=== PATIENT | male | born 1945 | race Caucasian/White ===

== ENCOUNTER 2017-09-13 11:22 | Emergency (ER) | payer MEDICARE ==
[2017-09-13] MEDS ORDERED: NS 0.9% 1000 ML* 1,000 ML IV ONE (11:56)
[2017-09-13] MEDS ORDERED: Aspirin 81 mg CHEW TAB* 81 MG TAB.CHEW PO ONE (11:56)
[2017-09-13] MEDS ORDERED: Nitroglycerin TAB 0.4 MG* 0.4 MG TAB SL ONE ×3 (11:56→13:45)
[2017-09-13 12:03] LABS: ABS Basophils 0.1 10^3/ul (0-0.2); ABS Eosinophils 0.3 10^3/ul (0-0.6); ABS Lymphocytes 1.4 10^3/ul (1.0-4.8); ABS Monocytes 0.7 10^3/ul (0-0.8); ABS Neutrophils 4.2 10^3/ul (1.5-7.7); ABS Nucleated RBC 0 10^3/ul; Eosinophil % 4.7 % (0-6); Hematocrit 43 % (42-52); Hemoglobin 15.2 g/dl (14.0-18.0); Lymphocyte % 21.1 % (25-47); Mean Corpuscular HGB Conc 36 g/dl (31-36); Mean Corpuscular Hemoglobin 34 pg (27-31); Mean Corpuscular Volume 94 fL (80-94); Nucleated Red Blood Cells % 0.2; Platelet Count 217 10^3/ul (150-450); Red Blood Count 4.51 10^6/ul (4.00-5.40); Red Cell Distribution Width 13 % (10.5-15); White Blood Count 6.7 10^3/ul (3.5-10.8)
--- NOTE | 2017-09-13 12:19 | RAD ---
INDICATION: Chest pain COMPARISON: July 23, 2017 TECHNIQUE: An AP portable view obtained at 1212 hours is submitted. FINDINGS: Bones/Soft Tissues: There are no acute bony findings. Cardiomediastinal: The cardiomediastinal silhouette is normal. Lungs: There are no infiltrates. Pleura: There are no pleural effusions. Other: None IMPRESSION: NO ACTIVE DISEASE.
[2017-09-13] MEDS ORDERED: Morphine VIAL* 4 MG/ML VIAL (1 ml vial) IV ONE (12:20)
[2017-09-13] MEDS ORDERED: Ondansetron ODT TAB* 4 MG PO ONE (12:20)
[2017-09-13] MEDS ORDERED: Ondansetron INJ* 2 MG/ML VIAL IV PRN (13:39)
[2017-09-13] MEDS ORDERED: Morphine INJ* 2 MG/ML 1 ML CARPUJECT IV PRN (13:39)
[2017-09-13] MEDS ORDERED: Acetaminophen TAB* 325 MG PO PRN (13:39)
[2017-09-13] MEDS ORDERED: Al Hydrox/Mg Hydrox/Simet LIQ* 30 ML UDC PO PRN (13:39)
[2017-09-13] MEDS ORDERED: Magnesium Hydroxide LIQ* 30 ML UDC PO PRN (13:39)
[2017-09-13] MEDS ORDERED: Heparin VIAL(*) 5000 UNITS/ML VIAL (FIVE THOUSAND) SUBCUT SCH (14:00)
[2017-09-13 15:11] LABS: Urine Appearance Clear; Urine Blood Negative (Negative); Urine Color Straw; Urine Ketones Negative (Negative); Urine Protein Negative (Negative); Urine Specific Gravity 1.008 (1.010-1.030); Urine Urobilinogen Negative (Negative)
--- NOTE | 2017-09-13 15:21 | ED ---
Israel Redding Julia, scribed for Ulises Sahni MD on 09/13/17 at 1144 . HPI Chest Pain - HPI Summary HPI Summary: This patient is a 72 year old M BIBA to [facility] accompanied by his with a chief complaint of sudden mid sternal chest pain at 09:30 this morning radiating to his neck. Pain was 10/10 in severity at the worst and is 8/10 currently. Reports SOB, dizziness, and a mild headache. Patient denies diaphoresis nausea and diarrhea. History of angina for the past 3.5 years; seen by Dr. Rene. Chest pain has been more frequent in the past 3-4 months, with significant worsening the past few days. Chest pain typically resolves with relaxation. 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 Didnt nitroglycerin this morning, due to reaction of significant headaches. Nuclear Stress test performed 08/04/17. Dr. Rene has been called prior to arrival. Denies history of blood clots. - History of Current Complaint Chief Complaint: EDChestPainROMI Time Seen by Provider: 09/13/17 11:31 Hx Obtained From: Patient Onset/Duration: Started Hours Ago Time of Onset: 09:30 Timing: Constant Initial Severity: Severe Current Severity: Moderate Pain Intensity: 8 Pain Scale Used: 0-10 Numeric Chest Pain Location: Mid Sternal Chest Pain Radiates: Yes Chest Pain Radiates To:: Neck Alleviating Factor(s): Nothing - today, Rest - usually Associated Signs and Symptoms: Positive: Chest Pain, Dizziness, Shortness of Breath Related History: Similar Episode/Dx as: - angina - Allergy/Home Medications Allergies/Adverse Reactions: Allergies Allergy/AdvReac Type Severity Reaction Status Date / Time No Known Allergies Allergy Verified 09/13/17 11:31 Home Medications: Home Medications Atorvastatin* [Lipitor*] 80 mg PO QPM 09/13/17 [History Confirmed 09/13/17] Cyanocobalamin TAB* [Vitamin B12 TAB*] 5,000 units PO DAILY 09/13/17 [History Confirmed 09/13/17] PMH/Surg Hx/FS Hx/Imm Hx Endocrine/Hematology History: Denies: Hx Diabetes Cardiovascular History: Reports: Hx Angina, Hx Coronary Artery Disease, Hx Hypercholesterolemia, Hx Hypertension, Other Cardiovascular Problems/Disorders - HEART BLOCKAGE Denies: Hx Myocardial Infarction, Hx Valvular Heart Disease Respiratory History: Denies: Hx Asthma, Hx Chronic Obstructive Pulmonary Disease (COPD) GI History: Reports: Other GI Disorders - celiac,mineirs History: Reports: Other Problems/Disorders - PROSTATE CA WITH PROSTATECTOMY Musculoskeletal History: Reports: Other Musculoskeletal History - OCCAISIONAL MUSCULAR BACK PAIN - Cancer History Cancer Type, Location and Year: PROSTATE - Surgical History Surgery Procedure, Year, and Place: PROSTATECTOMY. BACK SURGERY,hernia, diverticulitis Infectious Disease History: No Infectious Disease History: Denies: Traveled Outside the [place] in Last 30 Days - Family History Known Family History: Positive: Hypertension - Social History Alcohol Use: Weekly Alcohol Amount: wine, no more than 2 glasses/day Substance Use Type: Reports: None Smoking Status (MU): Never Smoked Tobacco Review of Systems Negative: Skin Diaphoresis Positive: Chest Pain Positive: Shortness Of Breath Negative: Diarrhea, Nausea Neurological: Other - dizziness Positive: Headache All Other Systems Reviewed And Are Negative: Yes Physical Exam - Summary Physical Exam Summary: General: well-appearing, no pain distress Skin: warm, color reflects adequate perfusion, dry Head: normal Eyes: EOMI, ADEEL ENT: normal Neck: supple, nontender Respiratory: CTA, breath sounds present Cardiovascular: RRR Abdomen: soft, nontender Bowel: present Musculoskeletal: normal, strength/ROM intact Neurological: sensory/motor intact, A&O x3 Psychological: affect/mood appropriate Triage Information Reviewed: Yes Vital Signs On Initial Exam: Initial Vitals Temp Pulse Resp BP Pulse Ox 98.7 F 72 17 139/79 97 09/13/17 11:27 09/13/17 11:27 09/13/17 11:27 09/13/17 11:27 09/13/17 11:27 Vital Signs Reviewed: Yes Diagnostics - Vital Signs Vital Signs Temp Pulse Resp BP Pulse Ox 09/13/17 11:30 72 20 98 09/13/17 11:29 70 13 139/79 95 09/13/17 11:27 98.7 F 72 17 139/79 97 - Laboratory Lab Results: Lab Results 09/13/17 09/13/17 09/13/17 Range/Units 11:53 11:53 11:53 WBC 6.7 (3.5-10.8) 10^3/ul RBC 4.51 (4.00-5.40) 10^6/ul Hgb 15.2 (14.0-18.0) g/dl Hct 43 (42-52) % MCV 94 (80-94) fL MCH 34 H (27-31) pg MCHC 36 (31-36) g/dl RDW 13 (10.5-15) % Plt Count 217 (150-450) 10^3/ul MPV 8.0 (7.4-10.4) um3 Neut % (Auto) 62.2 (38-83) % Lymph % (Auto) 21.1 L (25-47) % [place] % (Auto) 10.9 H (0-7) % Eos % (Auto) 4.7 (0-6) % Baso % (Auto) 1.1 (0-2) % Absolute Neuts (auto) 4.2 (1.5-7.7) 10^3/ul Absolute Lymphs (auto) 1.4 (1.0-4.8) 10^3/ul Absolute Monos (auto) 0.7 (0-0.8) 10^3/ul Absolute Eos (auto) 0.3 (0-0.6) 10^3/ul Absolute Basos (auto) 0.1 (0-0.2) 10^3/ul Absolute Nucleated RBC 0 10^3/ul Nucleated RBC % 0.2 INR (Anticoag Therapy) 0.90 (0.77-1.02) APTT 25.8 L (26.0-36.3) seconds D-Dimer, Quantitative < 200 (Less Than 230) ng/mL Sodium 141 (135-145) mmol/L Potassium 3.7 (3.5-5.0) mmol/L Chloride 106 (101-111) mmol/L Carbon Dioxide 29 (22-32) mmol/L Anion Gap 6 (2-11) mmol/L BUN 16 (6-24) mg/dL Creatinine 0.96 (0.67-1.17) mg/dL Est GFR ( Amer) 93.2 (>60) Est GFR (Non-Af Amer) 77.0 (>60) BUN/Creatinine Ratio 16.7 (8-20) Glucose 129 H (70-100) mg/dL Lactic Acid (0.5-2.0) mmol/L Calcium 9.3 (8.6-10.3) mg/dL Magnesium 2.1 (1.9-2.7) mg/dL Total Bilirubin 0.90 (0.2-1.0) mg/dL AST 33 (13-39) U/L ALT 42 (7-52) U/L Alkaline Phosphatase 84 (34-104) U/L Total Creatine Kinase 126 (10-223) U/L CK-MB (CK-2) 2.3 (0.6-6.3) ng/mL Troponin I 0.01 (<0.04) ng/mL C-Reactive Protein < 1.00 (<8.01) mg/L B-Natriuretic Peptide ( - 100) pg/mL Total Protein 7.1 (6.4-8.9) g/dL Albumin 4.4 (3.2-5.2) g/dL Globulin 2.7 (2-4) g/dL Albumin/Globulin Ratio 1.6 (1-3) Lipase 44 (11.0-82.0) U/L TSH 1.67 (0.34-5.60) mcIU/mL Urine Color Urine Appearance Urine pH (5-9) Ur Specific [place] (1.010-1.030) Urine Protein (Negative) Urine Ketones (Negative) Urine Blood (Negative) Urine Nitrate (Negative) Urine Bilirubin (Negative) Urine Urobilinogen (Negative) Ur Leukocyte Esterase (Negative) Urine Glucose (Negative) 09/13/17 09/13/17 09/13/17 Range/Units 11:53 11:53 14:49 WBC (3.5-10.8) 10^3/ul RBC (4.00-5.40) 10^6/ul Hgb (14.0-18.0) g/dl Hct (42-52) % MCV (80-94) fL MCH (27-31) pg MCHC (31-36) g/dl RDW (10.5-15) % Plt Count (150-450) 10^3/ul MPV (7.4-10.4) um3 Neut % (Auto) (38-83) % Lymph % (Auto) (25-47) % [place] % (Auto) (0-7) % Eos % (Auto) (0-6) % Baso % (Auto) (0-2) % Absolute Neuts (auto) (1.5-7.7) 10^3/ul Absolute Lymphs (auto) (1.0-4.8) 10^3/ul Absolute Monos (auto) (0-0.8) 10^3/ul Absolute Eos (auto) (0-0.6) 10^3/ul Absolute Basos (auto) (0-0.2) 10^3/ul Absolute Nucleated RBC 10^3/ul Nucleated RBC % INR (Anticoag Therapy) (0.77-1.02) APTT (26.0-36.3) seconds D-Dimer, Quantitative (Less Than 230) ng/mL Sodium (135-145) mmol/L Potassium (3.5-5.0) mmol/L Chloride (101-111) mmol/L Carbon Dioxide (22-32) mmol/L Anion Gap (2-11) mmol/L BUN (6-24) mg/dL Creatinine (0.67-1.17) mg/dL Est GFR ( Amer) (>60) Est GFR (Non-Af Amer) (>60) BUN/Creatinine Ratio (8-20) Glucose (70-100) mg/dL Lactic Acid 1.0 (0.5-2.0) mmol/L Calcium (8.6-10.3) mg/dL Magnesium (1.9-2.7) mg/dL Total Bilirubin (0.2-1.0) mg/dL AST (13-39) U/L ALT (7-52) U/L Alkaline Phosphatase (34-104) U/L Total Creatine Kinase (10-223) U/L CK-MB (CK-2) (0.6-6.3) ng/mL Troponin I (<0.04) ng/mL C-Reactive Protein (<8.01) mg/L B-Natriuretic Peptide 18 ( - 100) pg/mL Total Protein (6.4-8.9) g/dL Albumin (3.2-5.2) g/dL Globulin (2-4) g/dL Albumin/Globulin Ratio (1-3) Lipase (11.0-82.0) U/L TSH (0.34-5.60) mcIU/mL Urine Color Straw Urine Appearance Clear Urine pH 7.0 (5-9) Ur Specific [place] 1.008 L (1.010-1.030) Urine Protein Negative (Negative) Urine Ketones Negative (Negative) Urine Blood Negative (Negative) Urine Nitrate Negative (Negative) Urine Bilirubin Negative (Negative) Urine Urobilinogen Negative (Negative) Ur Leukocyte Esterase Negative (Negative) Urine Glucose Negative (Negative) Result Diagrams: 09/13/17 11:53 09/13/17 11:53 Lab Statement: Any lab studies that have been ordered have been reviewed, and results considered in the medical decision making process. - Radiology CXR Radiology Interpretation Completed By: Radiologist - NO ACTIVE DISEASE. ED Physician has reviewed this report. - EKG 1126 Cardiac Rate: NL - 72 BPM EKG Rhythm: Sinus Rhythm ST Segment: Normal Ectopy: None Chest Pain Course/Dx - Course Course Of Treatment: DR RENE SAW THE PATIENT IN THE ED. ADMIT HOSPITALIST. CRITICAL CARE TIME LESS THAN 30 MINUTES. - Diagnoses Provider Diagnoses: Chest pain - Provider Notifications Discussed Care Of Patient With: Yusuf Grayson - hospitalist Time Discussed With Above Provider: 13:40 Instructed by Provider To: Admit As Inpatient Discharge - Sign-Out/Discharge Documenting (check all that apply): Discharge/Admit/Transfer - admit - Discharge Plan Condition: Stable Disposition: ADMITTED TO [facility] Referrals: Rebecca Smith MD [Primary Care Provider] - - Billing Disposition and Condition Condition: STABLE Disposition: Admitted to [facility] The documentation as recorded by the Israel guillermo Julia accurately reflects the service I personally performed and the decisions made by , Ulises Sahni MD.
[2017-09-13 16:30] VITALS: BP 122/64
[2017-09-13] MEDS ORDERED: Atorvastatin* 80 MG TAB PO SCH (18:00)
[2017-09-13] MEDS ORDERED: traZODone TAB* 100 MG PO SCH (21:00)
[2017-09-13] MEDS ORDERED: Atenolol TAB* 25 MG PO SCH (21:00)
--- NOTE | 2017-09-13 21:10 | CONS ---
CC: Dr. Archibald * [facility] MEDICINE CONSULTATION REPORT: DATE OF CONSULT: 09/13/17 - EMERGENCY DEPT SDV PILOT/NAVIGATOR/DDS OPERATOR: Dr. Archibald. ATTENDING PHYSICIAN: Dr. Yusuf Grayson (dictation provided by Adry Templeton NP) . REASON FOR CONSULT: Recommended admission to the hospital for chest pain. HISTORY OF PRESENT ILLNESS: Mr. Dockery is a 72-year-old male with a past medical history of coronary artery disease that has been medically managed as well as recent episodes of syncope, who presents to the hospital today with concern for chest pain. Mr. Dockery states that he has had quite severe chest pain. He has been having ongoing workup under the care of Dr. Archibald including a stress test outpatient, which showed concern for inferior wall defect and a thallium viability test that was actually normal. Dr. Archibald had plans for exercise stress test to try to sort out whether or not his pain was actually related to any ischemia. The patient states his pain was so severe today that he decided to come to the hospital for evaluation. In the emergency room, Mr. Dockery had labs, which showed a troponin which is 0.01 and on repeat was also 0.01. His EKG showed no evidence of ischemia. He was in seen consultation by Dr. Arcihbald, who happens to be here providing inpatient cardiac consultation, and she recommended that he be admitted for this exercise stress test given his ongoing complaint of angina. PAST MEDICAL HISTORY: 1. Hypertension. 2. Coronary artery disease via cardiac catheterization. 3. Recent episodes of syncope. 4. Hyperlipidemia. MEDICATIONS: As outpatient are: 1. Amlodipine 5 mg p.o. daily. 2. Aspirin 81 mg p.o. daily. 3. Atenolol 25 mg p.o. daily. 4. Atorvastatin 80 mg p.o. daily. 5. Cyanocobalamin 5000 units p.o. daily. 6. Trazodone 100 mg p.o. at bedtime. 7. Triamterene/hydrochlorothiazide 37.5/25 one cap p.o. daily. ALLERGIES: No known drug allergies. FAMILY HISTORY: Reviewed, noncontributory. SOCIAL HISTORY: No report of tobacco or drug use. The patient lives with his , who is his healthcare proxy. REVIEW OF SYSTEMS: A 14-point of systems was completed with Mr. Dockery and all those not mentioned above were negative. PHYSICAL EXAM: Vital Signs: Temperature 98.7, pulse rate 65, respiratory rate 21, O2 saturation 95% on room air, and blood pressure 105/68. General: Mr. Dockery is lying in the bed, he is in no acute distress. Neuro: He is alert, he is oriented x3. He moves all extremities equally. There is no facial asymmetry or focal weakness. Extraocular movements are intact. Heart: S1, S2. No murmur, rub, or gallop, and regular. Lungs are clear to auscultation bilaterally with no accessory muscle use and good aeration. Abdomen: Soft, nontender with bowel sounds positive x4. Extremities: No cyanosis or edema. Skin is intact. DIAGNOSTIC STUDIES/LAB DATA: Sodium 141, potassium 3.7, chloride 106, serum bicarbonate 29, BUN 16, creatinine 0.96, glucose 129, lactic acid 1.0. Troponin 0.01 and repeat is 0.01. WBC 6.7, hemoglobin 15.2, hematocrit 43, platelet count 217. Urine shows no evidence of infection. EKG shows sinus rhythm with no evidence of ischemia. Chest x-ray shows no acute intrathoracic process. ASSESSMENT AND PLAN: Mr. Dockery is a 72-year-old with a past medical history of ongoing episodes of angina, now with some episodes of syncope at home. He is having ongoing workup with Dr. Archibald as outpatient including a chemical stress test and a thallium viability study. The patient had ongoing issues with pain that seems out of proportion to examination for some time. Dr. Archibald has been working to coordinate his care for further workup including plans for an outpatient exercise nuclear medicine stress test. Due to the patient's ongoing chest pain and presentation to the ED today, the recommendation was that the patient stay for exercise stress testing tomorrow; however, Mr. Dockery is very concerned about the cost of this observation stay in the hospital. He has family members who had large bills after an observation stay in the hospital. I have done my best to provide information about observation in the hospital and the typical billing process. I have strongly recommended that the patient and his reach out to their insurance company to try and learn more about the bill based on the particular insurance plan that they have, but they have been unable to reach the insurance company. The patient is currently chest pain free. Again, his troponins are negative. We have strongly recommended that he stay in the hospital for observation for stress testing tomorrow, but the patient has decided to sign out against medical advice. I filled up paper work with him and reviewed with him the risk of leaving including further chest pain, myocardial infarction, or cardiac . He understands those risks and is opting for discharge today from the emergency department. I strongly encouraged him to call Dr. Archibald's office first thing in the morning to begin to arrange for outpatient stress testing and preauthorization through his insurance company. I have also strongly advised him should he have any worsening of his symptoms that he should return immediately to the emergency room. DISPOSITION: To home against medical advice. TIME SPENT: Approximately 60 minutes was spent in the consultation of this patient, more than half of the time was spent with the patient at the bedside reviewing the events leading up to his ED presentation, performing physical examination, and reviewing my plan of care. ADRY TEMPLETON NP [id number]/[facility] #: [id number] ANGY
--- NOTE | 2017-09-13 21:35 | CONS ---
CC: Dr. Rebecca Smith; Hospitalist Service * CARDIOLOGY CONSULTATION REPORT: DATE OF CONSULT: 09/13/17 - EMERGENCY DEPT REASON FOR CONSULT: Chest pain and known coronary artery disease. CHIEF COMPLAINT: Chest pain. HISTORY OF PRESENT ILLNESS: Mr. Dockery is a 72-year-old gentleman, who I have known for many years with known arteriosclerotic heart disease, his cardiac catheterization at [facility] then revealed multiple 40 to 60% occlusions in all three major vessels as well as some lesser occlusions. The patient has been on medical management for these for many years and has had chronic stable angina. The patient exercises regularly. Recently, he has had some change in symptoms and in July of this year, he underwent an exercise Myoview study at our office. The patient tells me he has had a few episodes of loss of consciousness up to five times. He has had some dizziness, but no awareness of palpitations. He also has had epigastric pain associated with these on occasion. The patient denied any changes of his ability to do work outs and none of these events seem to occur during his usual regular exercise. The stress test in July showed a small thick defect in the inferior apex. I then followed up with a viability study at [facility] (thallium redistribution) and this showed normal perfusion. The tentative plan had been to repeat the stress test perhaps using the hospital camera to reevaluate and see if the inferior defect was in fact attenuation artifact or other. The patient has had been doing well this morning. His was getting ready for work and he developed severe 10/10 substernal chest discomfort. He points to the entire area and the broad substernal area. It associated with difficulty to get a breath, air hunger, dizziness, and he gets a small frontal headache with this. They have called me and I recommended being seen in the emergency department. His drove him in and initially he has had three sublingual nitroglycerin and morphine, and is still having some discomfort at the time I saw him. He had flushing. PAST MEDICAL HISTORY: The patient has a past medical history of: 1. Coronary artery disease, cardiac catheterization in 2013 showed 15 to 20% in the LAD itself up to 60% in the diagonals, circumflex up to 60%, right coronary artery 30 to 50%. 2. Chronic stable angina (substernal chest discomfort radiating to neck, jaw, flushing, and occasional nausea). 3. Hypertension. 4. Dyslipidemia. 5. Recurrent syncope starting in 2006, uncertain etiology. 6. Prostate cancer. 7. Celiac sprue. 8. Meniere's. 9. Back pain. 10. Significant cervical spine disease. MEDICATIONS: The patient's outpatient medications include: 1. Atorvastatin 80 mg a day. 2. Amlodipine 5 mg a day. 3. Trazodone 100 mg a day. 4. Aspirin 81 mg a day. 5. Atenolol 25 mg a day. 6. Vitamin B12. 7. Triamterene and hydrochlorothiazide one tab daily. ALLERGIES: He is intolerant to nitroglycerin due to the headaches and has no true drug allergies. FAMILY HISTORY: Significant for his father with the heart attack at age 38. SOCIAL HISTORY: The patient is , lives with his . He is retired from sales. Never smoked, occasional wine, likes his coffee up to four cups a day. REVIEW OF SYSTEMS: Negative for any recent fevers, chills, sweats, change in bowel or bladder habits, breakfast this morning included cereal and a cup of coffee, his usual. No change in exercise. No recent travel. All other review of systems was negative. PHYSICAL EXAM: On exam, the patient is 5 feet 10 inches, weighs 188 pounds with a BMI of 27. Vitals on arrival to the emergency room showed blood pressure 114/64, pulse was 63 and regular, oxygen saturation 95% on room air, and he was afebrile. Actually on arrival, blood pressure 139/69, pulse 72, oxygen saturation 97% on room air. General Appearance: Elder gentleman, lean, appears fit, in no acute distress, lying flat in the stretcher, in no acute distress. His is with him. Skin: Warm, dry without appreciable cyanosis or rashes. HEENT: Pupils are equal and round. Mucous membranes are moist. Neck: Without appreciable increase in JVP. No thyromegaly or lymphadenopathy. Lungs are clear with good effort. No wheezes, rales or rhonchi heard today. Coronary: S1, S2, regular without murmurs or rubs. Abdomen: Soft, no hepatomegaly. Lower extremities: Free of edema and warm. DIAGNOSTIC STUDIES/LAB DATA: A 12-lead ECG done in the emergency department shows normal sinus rhythm, 72 beats a minute, QRS axis of 0 with normal AV and IV conduction times, and normal ST segments and when compared with his baseline ECG of 10/04/13, there was no significant change. Chest x-ray showed no active disease and no infiltrates. Labs, white count 6.7, hematocrit 43, platelets 217, INR 0.9, PTT 26. Sodium 141, potassium 3.7, chloride 106, bicarb 29, glucose 129, BUN 16, creatinine 0.96, ALT of 42. CPK 126, troponin I 0.01, troponin II 0.01, BNP of 18, TSH 1.67. Lipids from 12/18/16, shows total cholesterol 127, triglycerides 99, LDL cholesterol 64, and HDL cholesterol 43. Urinalysis shows specific gravity 1.008, nitrite negative, esterase negative, pH of 7. IMPRESSION AND PLAN: In summary, Gene Dockery is a 72-year-old gentleman with moderate diffuse arteriosclerotic disease with chronic stable angina that felt to be vasospastic in nature, who has had recurrent syncopal episodes of uncertain etiology, and now presenting with severe onset of chest pain with minimal activity. The patient was advised to stay and get a repeat exercise Myoview study on the hospital camera, which is amenable to until he heard that he would have to be placed on observation status. This made him very anxious because his brother got a 14,000 dollar bill for observation status. If he decides not to be admitted and meets criteria for low risk category with two negative troponins, we will then schedule an outpatient exercise Myoview 2- day protocol in the hospital. Looking at additional possibilities for this pain, it is possible that some sort of gastrointestinal issue could be contributing possibly reflux. In the past, this has been tried to be treated, but in the past did not marlene the symptoms. With the flushing would raise the possibility of more unusual etiologies such as serotonin abnormalities. It is possible that with the diuretic, he is dropping his blood pressure leading to flushing and then global hypoperfusion leads to angina from hypotension and we could consider getting rid of this medication. Through the office, we are attempting to get event monitors, but there were insurance issues, that were still trying to work through (the patient has no prodrome for his syncopal episodes therefore would ideally get an MCOT type monitor or perhaps implantable event monitor would be best). The case has been discussed with the hospitalist and including the issues regarding not wanting to be admitted under OBV status, we are going to see if hospital administration can assist with the patient and understanding these insurance issues and criteria needing for admission status. Thank you for allowing me to assist in this nice gentleman's care. [id number]/[facility] #: [id number] MTDD
[2017-09-14] MEDS ORDERED: Aspirin 81 mg CHEW TAB* 81 MG TAB.CHEW PO SCH (09:00)
[2017-09-14] MEDS ORDERED: amLODIPine TAB* 5 MG PO SCH (09:00)
[2017-09-14] MEDS ORDERED: Triamterene/HCTZ 37.5-25 MG* CAP PO SCH (09:00)
[2017-09-14] MEDS ORDERED: Cyanocobalamin TAB* 500 MCG PO SCH (09:00)
== END 2017-09-13 16:29 | disposition left against medical advice (07) ==
LOC: ED 11:22 → UNDOADMOB 15:19 → MEDTELE 15:19 → UNDOADMOB 15:30 → MEDTELE 15:30 → ED 16:29
DX: R07.89 Other chest pain (principal); I25.118 Atherosclerotic heart disease of native coronary artery with other forms of angina pectoris; R55 Syncope and collapse; E78.00 Pure hypercholesterolemia, unspecified; I10 Essential (primary) hypertension; Z53.21 Procedure and treatment not carried out due to patient leaving prior to being seen by health care provider; Z79.899 Other long term (current) drug therapy; Z85.46 Personal history of malignant neoplasm of prostate; Z90.79 Acquired absence of other genital organ(s)
CPT/HCPCS: 36415; 71045; 80053; 81003; 82550; 82553; 83605; 83690; 83735; 83880; 84443; 84484; 85025; 85379; 85610; 85730; 86140; 93005; 96361; 96374; 99284; A9270-GY; J2270

== ENCOUNTER 2018-07-19 06:19 | Day surgery (SDC) | payer MEDICARE ==
[~2018-07-19 06:19] MED LIST: Buffered Lidocaine 1% SYRIN* 1 ML/SYRINGE INTRADERM ONE
[2018-07-19] MEDS ORDERED: Midazolam* 1 MG/ML 2 ML VIAL (2 MG) ONE (07:30)
[2018-07-19 08:29] VITALS: BP 116/66
[2018-07-19] MEDS ORDERED: Lidocaine 1%* 5 ML VIAL ONE (08:38)
[2018-07-19] MEDS ORDERED: Neomycin/Polymy/Dex OPHTH.OIN* 3.5 GM ONE (08:38)
[2018-07-19] MEDS ORDERED: Tropicamide 1% OPTH.SOL* BTL ONE (08:38)
[2018-07-19] MEDS ORDERED: Phenylephrine OPHTH SOL 2.5%* 2 ML ONE (08:38)
[2018-07-19] MEDS ORDERED: Cyclopentolate 1% OPTH.SOL* 2 ML BTL ONE (08:38)
[2018-07-19] MEDS ORDERED: acetaZOLAMIDE TAB* 250 MG ONE (08:38)
[2018-07-19] MEDS ORDERED: Povidone Iodine 5% OPTH* 30 ML BTL ONE (08:38)
[2018-07-19] MEDS ORDERED: Ketorolac 0.5% OPHTH (NF) 0.5 % 5 ML BTL ONE (08:39)
[2018-07-19] MEDS ORDERED: Tetracaine 0.5% OPTH.SOL 4 ML* 1 DROP BTL ONE (08:39)
--- NOTE | 2018-07-19 21:20 | OP ---
DATE OF OPERATION: 07/19/18 - [facility] DATE OF : 45 SURGEON: Fito Matthews MD ANESTHESIA: Monitored anesthesia care. PREOPERATIVE DIAGNOSIS: Cataract, right eye. POSTOPERATIVE DIAGNOSIS: Cataract, right eye. OPERATIVE PROCEDURE: Extracapsular cataract extraction of the right eye with intraocular lens implant. IMPLANT: SN60WF 20.0 diopter lens to the right eye. COMPLICATIONS: None. DESCRIPTION OF PROCEDURE: The patient was given phenylephrine 2.5 % and cyclopentolate 1% eye drops to the operative eye in the preoperative area. The patient was taken to the operating room where a time-out was taken to identify the correct patient, site, and side of surgery. The patient's right eye was prepped and draped in the usual sterile fashion with 5% Betadine. A second time- out was taken to verify the correct patient, side, and site of surgery, as well as the correct lens implant. A lid speculum was placed to the right eye. A 1mm paracentesis blade was used to make a clear corneal incision. Preservative-free 1% lidocaine was injected into the anterior chamber. DisCoVisc was then injected into the anterior chamber. A 2.75 mm keratome blade was used to make a triplanar incision. A cystotome initiated a capsulorrhexis, which was completed with Utrata forceps in a continuous and curvilinear manner. Hydrodissection of the lens was performed with BSS on a cannula. The lens could be spun in a capsular bag. The phacoemulsification handpiece was used with a divide-and- conquer technique to remove the nucleus. The I/A handpiece then removed the residual cortical lens material. DisCoVisc was injected to inflate the capsular bag. The planned SN60WF 20.0 diopter lens was injected into the capsular bag. The residual DisCoVisc was removed from the eye with the I/A handpiece. The corneal incisions were hydrated and no leaks occurred at physiologic pressure around 20 mmHg per palpation. The lid speculum was removed and drapes were removed. Maxitrol ointment was placed to the surface of the operative eye. An adhesive patch and shield was then placed on the operative eye. The patient was taken to the post-operative area in stable condition. [id number]/[facility] #: [id number] [facility]
== END 2018-07-19 08:12 | disposition home or self-care (01) ==
LOC: OREAST 06:19
PROVIDERS: ATTEND Student in an Organized Health Care Education/Training Program
DX: H25.811 Combined forms of age-related cataract, right eye (principal); H40.013 Open angle with borderline findings, low risk, bilateral; Z85.46 Personal history of malignant neoplasm of prostate; I10 Essential (primary) hypertension; E78.5 Hyperlipidemia, unspecified; K21.9 Gastro-esophageal reflux disease without esophagitis; J47.9 Bronchiectasis, uncomplicated; I25.10 Atherosclerotic heart disease of native coronary artery without angina pectoris
CPT/HCPCS: A9270-GY; J2250; V2632

== ENCOUNTER 2018-07-26 07:17 | Day surgery (SDC) | payer MEDICARE ==
[~2018-07-26 07:17] MED LIST changes: +Acetaminophen TAB* 325 MG PO PRN
[2018-07-26] MEDS ORDERED: Midazolam* 1 MG/ML 2 ML VIAL (2 MG) ONE (08:26)
[2018-07-26 09:37] VITALS: BP 122/68
[2018-07-26] MEDS ORDERED: acetaZOLAMIDE TAB* 250 MG ONE (11:09)
[2018-07-26] MEDS ORDERED: Cyclopentolate 1% OPTH.SOL* 2 ML BTL ONE (11:09)
[2018-07-26] MEDS ORDERED: Tropicamide 1% OPTH.SOL* BTL ONE (11:10)
[2018-07-26] MEDS ORDERED: Phenylephrine OPHTH SOL 2.5%* 2 ML ONE (11:10)
[2018-07-26] MEDS ORDERED: Ketorolac 0.5% OPHTH (NF) 0.5 % 5 ML BTL ONE (11:10)
[2018-07-26] MEDS ORDERED: Povidone Iodine 5% OPTH* 30 ML BTL ONE (11:10)
[2018-07-26] MEDS ORDERED: Neomycin/Polymy/Dex OPHTH.OIN* 3.5 GM ONE (11:10)
[2018-07-26] MEDS ORDERED: Tetracaine 0.5% OPTH.SOL 4 ML* 1 DROP BTL ONE (11:10)
[2018-07-26] MEDS ORDERED: Lidocaine 1%* 5 ML VIAL ONE (11:10)
--- NOTE | 2018-07-27 04:35 | OP ---
DATE OF OPERATION: 07/26/18 - [facility] DATE OF : 45 SURGEON: Fito Matthews MD ANESTHESIA: Monitored anesthesia care. PREOPERATIVE DIAGNOSIS: Cataract, left eye. POSTOPERATIVE DIAGNOSIS: Cataract, left eye. OPERATIVE PROCEDURE: Extracapsular cataract extraction of the left eye with intraocular lens implant. IMPLANT: SN60WF 20.5 Diopter lens to the left eye. COMPLICATIONS: None. DESCRIPTION OF PROCEDURE: The patient was given phenylephrine 2.5 % and cyclopentolate 1% eye drops to the operative eye in the preoperative area. The patient was taken to the operating room where a time-out was taken to identify the correct patient, site, and side of surgery. The patient's left eye was prepped and draped in the usual sterile fashion with 5% Betadine. A second time -out was taken to verify the correct patient, side, and site of surgery, as well as the correct lens implant. A lid speculum was placed to the left eye. A 1 mm paracentesis blade was used to make a clear corneal incision. Preservative -free 1% lidocaine was injected into the anterior chamber. DisCoVisc was then injected into the anterior chamber. A 2.75 mm keratome blade was used to make a triplanar incision. A cystotome initiated a capsulorrhexis, which was completed with Utrata forceps in a continuous and curvilinear manner. Hydrodissection of the lens was performed with BSS on a cannula. The lens could be spun in a capsular bag. The phacoemulsification handpiece was used with a divide-and- conquer technique to remove the nucleus. The I/A handpiece then removed the residual cortical lens material. DisCoVisc was injected to inflate the capsular bag. The planned SN60WF 20.5 Diopter lens was injected into the capsular bag. The residual DisCoVisc was removed from the eye with the I/A handpiece. The corneal incisions were hydrated and no leaks occurred at physiologic pressure around 20 mmHg per palpation. The lid speculum was removed and drapes were removed. Maxitrol ointment was placed to the surface of the operative eye. An adhesive patch and shield was then placed on the operative eye. The patient was taken to the postoperative area in stable condition. [id number]/[facility] #: [id number] [facility]ITAL[facility]vie
== END 2018-07-26 09:37 | disposition home or self-care (01) ==
LOC: OREAST 07:17
PROVIDERS: ATTEND Student in an Organized Health Care Education/Training Program
DX: H25.812 Combined forms of age-related cataract, left eye (principal); H40.013 Open angle with borderline findings, low risk, bilateral; I10 Essential (primary) hypertension; E78.5 Hyperlipidemia, unspecified; I25.10 Atherosclerotic heart disease of native coronary artery without angina pectoris; Z85.46 Personal history of malignant neoplasm of prostate
CPT/HCPCS: A9270-GY; J2250; V2632